=== PATIENT | female | born 1990 | race Caucasian/White ===

== ENCOUNTER 2017-10-25 06:32 | Emergency (ER) | payer SELFPAY ==
[~2017-10-25 06:32] MED LIST: ALB17R INH; ATEN-1 PO; AZI250 PO; BEN100 PO; FLUO-202 PO; HYDR473S4 PO; IBUP800T37 PO; LEVO1TAB45 PO; LOR5/325 PO; LORA-674 PO; ORAL BIRTH CONTROL; PHEN200T32 PO; POTA2.5T7 PO; PRE20 PO; SULF-198 PO; TRAM-420 PO; TRAZ50 PO; ZOLP-350 PO
[2017-10-25] MEDS ORDERED: vitamin d (06:41)
[2017-10-25] MEDS ORDERED: METO25TA93 PO (06:41)
[2017-10-25] MEDS ORDERED: CITA-145 PO (06:41)
[2017-10-25] MEDS ORDERED: ALBUTEROL/IPRATROPIUM 3 ML NEB NEB ONE (06:50)
--- NOTE | 2017-10-25 07:54 | RADIOLOGY IMAGING REPORT ---
FACILITY: [facility] PATIENT NAME: Nena Rasheed : 1990 MR: [id number] V: [id number] EXAM DATE: ORDERING PHYSICIAN: CASSIDY MOORE TECHNOLOGIST: Location: [facility] [place] Patient: Nena Rasheed : 1990 Visit/Account:[id number] Date of Sevice: 10/25/2017 CHEST PA AND LAT HISTORY: Cough COMPARISON: 03/20/2008 FINDINGS: Cardiomediastinal contours: Normal Lungs and pleura: Normal Bones/soft tissues: Normal Other findings: None significant IMPRESSION: 1. Normal chest. No change. Report Dictated By: Edu Isaac MD at 10/25/2017 7:48 AM Report E-Signed By: Edu Isaac MD at 10/25/2017 7:49 AM WSN:[id number]
[2017-10-25] MEDS ORDERED: ALB6.7R INH (07:56)
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
[2017-10-25] MEDS ORDERED: DEXAMETHASONE 4 MG TAB PO ONE (08:00)
[2017-10-25 08:06] VITALS: BP 129/85
== END 2017-10-25 08:10 | disposition home or self-care (01) ==
LOC: ER 06:44
DX: J06.9 Acute upper respiratory infection, unspecified (principal)
CPT/HCPCS: 71046; 94640; 99283; J7620; J8540

== ENCOUNTER 2018-05-01 13:28 | Emergency (ER) | payer SELFPAY ==
[~2018-05-01 13:28] MED LIST changes: +ALB6.7R INH; +CITA-145 PO; +METO25TA93 PO; +vitamin d
--- NOTE | 2018-05-01 13:43 | ER Report ---
History and Physical Time Seen By MD: 13:44 Hx. of Stated Complaint: dental pain and swelling r jaw, lower molar HPI/ROS CHIEF COMPLAINT: Dental pain HISTORY OF PRESENT ILLNESS: This is a 27-year-old female who presents to the emergency department for dental pain. Patient states that yesterday she develo ped some right lower dental pain, progressively getting worse, today she woke up with some swelling to the right jaw and increased dental pain. Patient's called around to several dentists, they enforce he did not take her insurance, she did find a dentist in [place] but does take her insurance however they are gone until next week. Patient denies fevers or chills. No nausea or vomiting. No chest pain or shortness of breath. REVIEW OF SYSTEMS: Respiratory: No cough, no dyspnea. Cardiovascular: No chest pain, no palpitations. Gastrointestinal: No vomiting, no abdominal pain. Musculoskeletal: No back pain. Dental: As above. Allergies: Coded Allergies: No Known Drug Allergies (Verified , 01/14/16) Home Meds Active Scripts Clindamycin Hcl (CLEOCIN HCL) 150 Mg Capsule, 450 MG PO TID, #21 CAPSULE 0 Refills Prov:KATI JARA B[employer]ING [employer]ADER-BC 05/01/18 Albuterol Sulfate (PROVENTIL HFA) 6.7 Gm Inh, 1-2 PUFF INH 3-4XD for 10 Days, INH Prov:ARLIN BAUGH MD 10/25/17 Reported Medications Citalopram Hydrobromide (CITALOPRAM HBR) 20 Mg Tablet, 40 MG PO QDAY, #5 TAB 10/25/17 Metoprolol Tartrate (METOPROLOL TARTRATE) 25 Mg Tablet, 1 TAB PO QDAY, TAB 10/25/17 Discontinued Reported Medications [vitamin d] No Conflict Check 10/25/17 Past Medical/Surgical History The patient has a past medical and surgical history of hypertension, born premature, premature lungs, pneumonia, ovarian cysts, depression. Reviewed Nurses Notes: Yes Hx Smoking: No Smoking Status: Never Smoker Hx Substance Use Disorder: Yes (POT) Hx Alcohol Use: Yes (OCC) Constitutional Vital Sign - Last 24 Hours 05/01/18 05/01/18 13:34 14:10 Temp 98.1 Pulse 61 71 Resp 16 B/P (MAP) 147/97 142/103 (116) Pulse Ox 94 97 O2 Delivery Room Air Room Air Physical Exam General Appearance: The patient is alert, has no immediate need for airway protection and no current signs of toxicity. Eyes: Pupils equal and round no injection. Mouth: Mild to moderate swelling to the right lower draw, mild erythema to the gumline, gingivitis, dental caries. No purulent drainage. Respiratory: Chest is non tender, lungs are clear to auscultation. Cardiac: regular rate and rhythm. Gastrointestinal: Abdomen is soft and non tender, no masses, bowel sounds normal. Musculoskeletal: Neck: Neck is supple and non tender. Extremities have full range of motion and are non tender. Skin: No rashes or lesions. DIFFERENTIAL DIAGNOSIS: After history and physical exam differential diagnosis was considered for peritonsillar abscess, dental abscess, Jacob's angina. Medical Decision Making ED Course/Re-evaluation ED Course The patient was admitted to room. A history of physical were obtained. Differential diagnoses were considered. After evaluation of the patient, did place the patient on clindamycin. She was instructed to follow-up with the dentist that she likely has established in [place]. Patient will follow-up next week. Patient had no other questions or concerns at this time and was discharged home. She was also started take ibuprofen or Tylenol for pain. She'll also return immediately for worsening symptoms. Decision to Disposition Date: May 01, 2018 Decision to Disposition Time: 13:54 Depart Departure Latest Vital Signs Vital Signs Date Time Temp Pulse Resp B/P (MAP) Pulse Ox O2 Delivery O2 Flow Rate FiO2 05/01/18 14:10 71 142/103 (116) 97 Room Air 05/01/18 13:34 98.1 16 Impression: Primary Impression: Pain, dental Condition: Improved Disposition: HOME OR SELF-CARE New Scripts Clindamycin Hcl (CLEOCIN HCL) 150 Mg Capsule 450 MG PO TID, #21 CAPSULE 0 Refills Prov: NABILKATI ISIDRO B[employer]ING [employer]ER-BC 05/01/18 Patient Instructions: Dental Abscess (ED), Dental Caries (DC) Additional Instructions: Take the Clilndamycin as directed. Monitor the infection closely, if not improving return to the ED. Follow up with the Dentist in [place] next week. Drink plenty of water. Get plenty of rest. Take 800mg (4 - 200mg tabs) Ibuprofen every 8 hours as needed for pain. Take 500-1000mg Acetaminophen (Xtra strength). every 8 hours as needed for pain. Return to the ED for any other concerns or worsening symptoms. Salt water gargles every 2-3 hours while awake. KATI JARA [employer]ING [employer]ER-BC May 01, 2018 13:43
[2018-05-01] MEDS ORDERED: CLIN-60 PO (13:56)
[2018-05-01 14:10] VITALS: BP 142/103
== END 2018-05-01 14:10 | disposition home or self-care (01) ==
LOC: ER 14:01
DX: K08.89 Other specified disorders of teeth and supporting structures (principal)
CPT/HCPCS: 99281